=== PATIENT | male | born 1960 | race Caucasian/White ===

== ENCOUNTER 2016-10-23 09:27 | Emergency (ER) | payer MEDICARE, OTHER ==
[~2016-10-23] VITALS: Ht 180.3 cm; Wt 102.1 kg
[~2016-10-23 09:27] MED LIST: AUGMENTIN 875-1 EACH PO; DOXYCYCLINE HY100 MG PO; ENDOCET 10-3251 EACH PO; GENTAK5 ML OPTH; GLUCOTROL5 MG PO; HYDROCHLOROTHIA25 MG PO; IBUPROFEN600 MG PO; LISINOPRIL40 MG PO; METFORMIN HCL1000 MG PO; METFORMIN HCL500 MG PO; NEURONTIN300 MG PO; NEURONTIN800 MG PO; NORCO 5-325 TA1 EACH PO; NORVIR100 M1 PO; OXYCODONE HCL5 MG PO; OXYCODONE-ACET1 EAC3 PO; PREDNISONE20 MG PO; PROVENTIL HFA6.7 GM INH; REYATAZ200 MG PO; REYATAZ300 MG PO; SULFAMETHOXAZO1 EAC1 PO; TRUVADA 200 MG1 EACH PO; ZITHROMAX250 MG PO
[2016-10-23] MEDS ORDERED: ASPIRIN81 MG PO (09:52)
[2016-10-23] MEDS ORDERED: AZITHROMYCIN600 MG PO (09:52)
[2016-10-23] MEDS ORDERED: BUPROPION XL150 MG PO (09:53)
[2016-10-23] MEDS ORDERED: GABAPENTIN800 MG PO (09:53)
[2016-10-23] MEDS ORDERED: HYDROCHLOROTHIA25 MG PO (09:54)
[2016-10-23] MEDS ORDERED: NORVIR100 M1 PO (09:55)
[2016-10-23] MEDS ORDERED: NICOTINE PATCH1 EAC3 TD (09:55)
[2016-10-23] MEDS ORDERED: GLUCOPHAGE XR500 MG PO (09:55)
[2016-10-23] MEDS ORDERED: TRUVADA 200 MG1 EACH PO (09:56)
[2016-10-23] MEDS ORDERED: REYATAZ300 MG PO (09:56)
[2016-10-23] MEDS ORDERED: PRAVASTATIN SOD20 MG PO (09:56)
[2016-10-23] MEDS ORDERED: HYDROCODON-ACE1 EA10 PO (10:04)
[2016-10-23] MEDS ORDERED: HYDROXYZINE HCL25 MG PO (10:34)
[2016-10-23] MEDS ORDERED: LORAZEPAM1 MG PO (10:35)
[2016-10-23] MEDS ORDERED: LIDOCAINE35.44 GM TOP (10:35)
[2016-10-23] MEDS ORDERED: ENDOCET 10-3251 EACH PO (10:36)
[2016-10-23] MEDS ORDERED: OXYCODONE HCL5 MG PO (10:37)
--- NOTE | 2016-10-23 20:40 | EKG ---
[facility] [address] [facility] [place], [place] [address] Signed Normal sinus rhythm Normal ECG When compared with ECG of 27-SEP-2016 13:05, No significant change was found Confirmed by JILLIAN DARLING MD ([id number] on 10/23/2016 8:39:50 PM Electronically Signed By: JILLIAN DARLING MD 10/23/162039 PATIENT NAME: KENN PENALOZA Electrocardiogram DATE OF : 64 PHYSICIAN: JILLIAN DARLING MD REPORT #: [id number] REPORT IS CONFIDENTIAL AND NOT TO BE RELEASED WITHOUT AUTHORIZATION
== END 2016-10-23 12:35 | disposition home or self-care (01) ==
LOC: ED 09:27
DX: G45.9 Transient cerebral ischemic attack, unspecified (principal); E11.9 Type 2 diabetes mellitus without complications; B20 Human immunodeficiency virus [HIV] disease; F17.200 Nicotine dependence, unspecified, uncomplicated; Z89.512 Acquired absence of left leg below knee; Z89.421 Acquired absence of other right toe(s); Z90.49 Acquired absence of other specified parts of digestive tract; Z88.5 Allergy status to narcotic agent; Z79.82 Long term (current) use of aspirin; Z79.84 Long term (current) use of oral hypoglycemic drugs; Z79.899 Other long term (current) drug therapy
CPT/HCPCS: 36415; 70496; 71010; 80053; 84484; 85025; 93005; 93010; 96374; 96375; 96376; 99284; J1200; J1630; Q9967

== ENCOUNTER 2016-12-16 09:14 | Emergency (ER) | payer MEDICARE, OTHER ==
[~2016-12-16] VITALS: Ht 180.3 cm; Wt 108.9 kg
[~2016-12-16 09:14] MED LIST changes: +ASPIRIN81 MG PO; +AZITHROMYCIN600 MG PO; +BUPROPION XL150 MG PO; +GABAPENTIN800 MG PO; +GLUCOPHAGE XR500 MG PO; +HYDROCODON-ACE1 EA10 PO; +HYDROXYZINE HCL25 MG PO; +LIDOCAINE35.44 GM TOP; +LORAZEPAM1 MG PO; +NICOTINE PATCH1 EAC3 TD; +PRAVASTATIN SOD20 MG PO
[2016-12-16] MEDS ORDERED: HYDROCHLOROTHIA25 MG PO (10:14)
[2016-12-16] MEDS ORDERED: METOPROLOL SUCC50 MG PO (10:16)
[2016-12-16] MEDS ORDERED: VOLTAREN100 GM TOP (10:25)
--- NOTE | 2016-12-16 17:18 | EKG ---
[facility] [address] [facility] [place], [place] [address] Signed Normal sinus rhythm Normal ECG When compared with ECG of 23-OCT-2016 09:34, No significant change was found Confirmed by JILLIAN DARLING MD ([id number] on 12/16/2016 5:18:24 PM Electronically Signed By: JILLIAN DARLING MD 12/16/16 1718 PATIENT NAME: KENN PENALOZA Electrocardiogram DATE OF : 64 PHYSICIAN: JILLIAN DARLING MD REPORT #: [id number] REPORT IS CONFIDENTIAL AND NOT TO BE RELEASED WITHOUT AUTHORIZATION
== END 2016-12-16 11:13 | disposition home or self-care (01) ==
LOC: ED 09:14
DX: R47.01 Aphasia (principal); R45.4 Irritability and anger; Z76.5 Malingerer [conscious simulation]; E11.9 Type 2 diabetes mellitus without complications; F17.200 Nicotine dependence, unspecified, uncomplicated; Z86.73 Personal history of transient ischemic attack (TIA), and cerebral infarction without residual deficits; Z21 Asymptomatic human immunodeficiency virus [HIV] infection status; Z89.421 Acquired absence of other right toe(s); Z89.512 Acquired absence of left leg below knee; Z90.49 Acquired absence of other specified parts of digestive tract; Z88.5 Allergy status to narcotic agent; Z79.82 Long term (current) use of aspirin; Z79.899 Other long term (current) drug therapy; Z79.84 Long term (current) use of oral hypoglycemic drugs
CPT/HCPCS: 70450; 71010; 80053; 84484; 85025; 85610; 85730; 99284

== ENCOUNTER 2016-12-28 08:39 | Emergency (ER) | payer MEDICARE, OTHER ==
[~2016-12-28] VITALS: Ht 180.3 cm; Wt 108.9 kg
[~2016-12-28 08:39] MED LIST changes: +METOPROLOL SUCC50 MG PO; +VOLTAREN100 GM TOP
--- NOTE | 2016-12-28 13:33 | EKG ---
[facility] [address] [facility] [place], [place] [address] Signed Sinus tachycardia Otherwise normal ECG When compared with ECG of 16-DEC-2016 09:48, ST no longer elevated in Inferior leads QT has lengthened Confirmed by LIBRA STONE MD ([id number] on 12/28/2016 1:33:16 PM Electronically Signed By: LIBRA STONE MD 12/28/16 1333 PATIENT NAME: AVANI PENALOZAORY Electrocardiogram DATE OF : 64 PHYSICIAN: LIBRA STONE MD REPORT #: [id number] REPORT IS CONFIDENTIAL AND NOT TO BE RELEASED WITHOUT AUTHORIZATION
== END 2016-12-28 10:27 | disposition short-term general hospital (02) ==
LOC: ED 08:39
DX: I63.9 Cerebral infarction, unspecified (principal); B20 Human immunodeficiency virus [HIV] disease; E11.9 Type 2 diabetes mellitus without complications; F17.200 Nicotine dependence, unspecified, uncomplicated; Z89.432 Acquired absence of left foot; Z89.431 Acquired absence of right foot; Z89.512 Acquired absence of left leg below knee; Z90.49 Acquired absence of other specified parts of digestive tract; Z88.5 Allergy status to narcotic agent; Z79.82 Long term (current) use of aspirin; Z79.899 Other long term (current) drug therapy; Z79.84 Long term (current) use of oral hypoglycemic drugs
CPT/HCPCS: 70450; 70496; 70498; 71010; 80053; 84484; 85025; 85610; 85730; 93005; 93010; 96374; 99285; J2997; Q9967